=== PATIENT | male | born 1980 | race Caucasian/White ===

== ENCOUNTER 2020-03-06 13:34 | Emergency (ER) | payer MEDICAID, SELFPAY ==
[2020-03-06 13:36] VITALS: BP 140/81; PULSE 90; RESP 16; TEMP 36.9; O2SAT 98; BMI 20.2
--- NOTE | 2020-03-06 14:25 | EKG12_ITS ---
Test Reason : SYNCOPE Blood Pressure : / mmHG Vent. Rate : 075 BPM Atrial Rate : 082 BPM P-R Int : 188 ms QRS Dur : 090 ms QT Int : 370 ms P-R-T Axes : 049 085 048 degrees QTc Int : 413 ms Normal sinus rhythm with sinus arrhythmia Normal ECG Confirmed by VIRAJ HUIZAR, SANDRITA ([id number]), graphic editor TIBURCIO العراقي ([id number]) on 03/10/2020 9:29:11 AM Referred By: RORY Confirmed By:SANDRITA CALI MD
--- NOTE | 2020-03-06 14:25 | RAD_ITS ---
STUDY: X-RAY CHEST REASON FOR EXAM: Male, 39 years old. SYNCOPE, HAS HAD SAME ISSUE IN PAST, NO CHEST COMPAINTS TECHNIQUE: Single AP portable view of the chest. COMPARISON: None. FINDINGS: EKG electrodes are seen. Hyperinflation. The lungs are clear. There is no demonstrated pleural abnormality. Normal size heart. Normal mediastinum and mahesh. Normal visualized pulmonary arteries. Normal visualized aortic arch and descending thoracic aorta. Normal visualized thoracic spine. Normal visualized ribs, clavicles, and shoulders. There is no demonstrated abnormality of the visualized soft tissue structures of the upper abdomen. RAD/Chest 1 View (Portable) IMPRESSION: Hyperinflation. Electronically Signed: Rell Purdy, at 15:31 EDT , Service support ,
--- NOTE | 2020-03-06 14:30 | ED.VIS.GEN ---
History of Present Illness Chief Complaint: Syncope Informant: Patient Onset: Today Narrative: Patient is a 39-year-old male with no past medical history presenting after syncopal episode. Patient was at work this morning around 1130 when he started to feel lightheaded. Patient got up and walked around when he felt little better. He then sat in his bosses chair and put his head down. The next day he noticed spots in a different spot. Patient thinks he might of blacked out because he does not remember his boss moving around the office. Patient states afterwards he started to feel sweaty. He states he has had episodes where he is passed out throughout his life. He thinks he is had about 6 total. Some of that associated with pain in the middle the night or having a bowel movement. States he otherwise felt well this morning but notes that he did not eat breakfast this morning which is normal for him. 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 Patient has not had blood work or seen a primary care doctor in a couple years. He denies any family history of any genetic or cardiac abnormalities. He denies any other complaints at this time. His last episode of syncope was about 3 years ago. Past Medical History - Allergies and Home Meds Allergies/Adverse Reactions: Allergies No Known Allergies Allergy (Verified 03/06/20 13:36) Primary Care Physician: Nick Bedolla MD [STAFF PHYSICIAN] - Past Medical History: None Surgical History: noncontributory Review of Systems General: Reports: Sweats, - - lightheaded. Denies: Chills, Fever Eyes: Denies: Visual changes - bilaterally, Diplopia ENT: Denies: Rhinorrhea, Sore throat Cardiovascular: Denies: Chest pain, Palpitations Respiratory: Denies: Dyspnea, Cough, Dyspnea on exertion Gastrointestinal: Denies: Abdominal pain, Nausea, Vomiting, Diarrhea, Melena, Hematochezia Genitourinary: Denies: Dysuria, Hematuria, Frequency Musculoskeletal: Denies: Back pain, Extremity Pain Skin: Denies: Rash, Wounds Neurological: Denies: Headache, Weakness, Numbness Physical Exam Vital Signs/Narrative: Vital Signs Temp Pulse Resp BP Pulse Ox 03/06/20 13:36 98.4 F 90 16 140/81 H 98 Inital Vital Signs reviewed: Yes General: Well nourished, Well developed, No Acute Distress Head: Normocephalic, Atraumatic Eyes: Perrl, EOMI ENT: Moist mucous membranes, No rhinorrhea Neck: Supple, Nontender Cardiovascular: Regular rate, Regular rhythm, No murmurs Respiratory: No distress, CTA bilaterally, Chest nontender Abdomen: Soft, Nontender, Nondistended, Normal bowel sounds Back: Nontender, Normal Inspection Extremities: Nontender, No edema Skin: Normal color, No rash Neurological: Alert, Oriented x3, Cranial nerves II-XII grossly intact, Normal Strength, Normal Sensation Psychological: Normal affect, Normal Mood Diagnostic/Tx/Re-eval Clinical Impression(s) from Imaging Studies Chest X-Ray 03/06/20 14:25 IMPRESSION: Hyperinflation. Electronically Signed: Rell Rajwinder, at 15:31 EDT , Service support , Laboratory Data 03/06/20 03/06/20 03/06/20 14:40 14:40 16:40 WBC 7.8 RBC 5.22 Hgb 16.5 Hct 48.5 MCV 92.9 MCH 31.6 MCHC 34.0 RDW Std Deviation 40.8 RDW Coeff of Julio 11.9 Plt Count 380 MPV 9.7 Immature Gran % (Auto) 0.400 Neut % (Auto) 77.5 H Lymph % (Auto) 14.2 L [place] % (Auto) 6.5 Eos % (Auto) 0.8 Baso % (Auto) 0.6 Absolute Neuts (auto) 6.1 Absolute Lymphs (auto) 1.11 Nucleated RBC % 0 Sodium 139 Potassium 3.4 L Chloride 105 Carbon Dioxide 29.0 Anion Gap 5 BUN 9 Creatinine 0.87 Estim Creat Clear Calc 100.45 Est GFR (MDRD) Af Amer 125 Est GFR (MDRD) Non-Af 104 BUN/Creatinine Ratio 10.3 Glucose 96 Calcium 9.2 Troponin I < 0.015 TSH 1.77 Urine Color Yellow Urine Clarity Clear Urine pH 8.0 Ur Specific [place] 1.010 Urine Protein Negative Urine Glucose (UA) Normal Urine Ketones Negative Urine Occult Blood Negative Urine Nitrite Negative Urine Bilirubin Negative Urine Urobilinogen Normal Ur Leukocyte Esterase Negative Urine RBC 0 SEEN Urine WBC 0 SEEN Ur Squamous Epith Cells 0 SEEN Amorphous Sediment 1+ Urine Bacteria 0 SEEN Urine Mucus 0 SEEN - Rhythm Strip Rhythm Strip: Sinus Rhythm Rate: 75 Ectopy: None - EKG Initial EKG Interpretation: Sinus Rhythm, - - Normal sinus rhythm at a rate of [address] segments Normal intervals Poor baseline - Medical Decision Making Patient is evaluated for presyncope that occurred at work today. Patient had intermittent episodes over the last 20 years of syncope and presyncope. He is hemodynamically stable in the emergency room. He does have a orthostatics. Patient is given 2 L of IV fluids. His work-up is otherwise negative. He does not have any acute EKG abnormalities. Not complain of any associated chest pain or shortness of breath and I do not think a d-dimer or PE work-up is indicated at this time. Patient is counseled that he is stable for discharge but I do recommend that he follow-up further with a primary care doctor. He is referred to on-call PCP for outpatient follow-up. Patient is counseled that he might benefit from an event monitor but that is up to the discretion of his PCP. I do think there is a component of dehydration as he feels much better after receiving 2 L of IV fluids. Patient is counseled on signs and symptoms requiring return to the emergency room. Patient verbalizes agreement and understand this plan. Patient discharged home in stable and improved condition. ED Disposition - Plan for ED Patient: Disposition: Home or Assisted Living Diagnosis: Dehydration, Orthostatic dizziness Instructions: ED Dehydration Adult, ED Hypotension Orthostatic, ED VAGAL SYNCOPE Referrals: Nick Bedolla MD [STAFF PHYSICIAN] -
[2020-03-06 14:44] VITALS: BP 120/59; BP 73/47; PULSE 59; PULSE 71
[2020-03-06 14:50] LABS: Absolute Lymphocyte Count 1.11 X10^3/uL (0.83-4.51); Absolute Neutrophil Count 6.1 X10^3/uL (2.0-7.7); Basophil# 0.05 X10^3/uL; Basophil% 0.6 % (0-1); Eosinophil# 0.06 X10^3/uL; Eosinophils% 0.8 % (0-5); Hematocrit 48.5 % (40-54); Hemoglobin 16.5 g/dL (13.0-16.5); Lymphocyte # 1.11 X10^3/ul (4.0); Lymphocyte % 14.2 % (19-41); Mean Corpuscular Hgb 31.6 pg (27.0-32.0); Mean Corpuscular Volume 92.9 fL (80-94); Mean Platelet Vol. 9.7 fl (6.2-12.0); Monocyte# 0.51 X10^3/uL; Monocyte% 6.5 % (0-10); NRBC Flagged by Analyzer 0 % (0-5); Neutrophil # 6.08 X10^3/uL (2.7-7.7); Neutrophil % 77.5 % (47-70); Platelet Count 380 K/mm3 (150-450); RBC Distribution Width CV 11.9 % (11.6-14.6); RBC Distribution Width SD 40.8 fl (35.1-43.9); Red Blood Count 5.22 M/mm3 (4.6-6.2); White Blood Count 7.8 K/mm3 (4.4-11.0)
[2020-03-06] MEDS: 0.9% Normal Saline 1,000 ML 1000 ML IV (14:52)
--- NOTE | 2020-03-06 14:55 | NURSING ---
NO OLD EKGS
[2020-03-06 15:23] LABS: Anion Gap 5 (5-15); BUN 9 mg/dL (7-18); BUN/Creat Ratio 10.3 RATIO (10-20); Calcium,Total 9.2 mg/dL (8.5-10.1); Chloride 105 mmol/L (98-107); Creatinine, Serum 0.87 mg/dL (0.70-1.30); EST Glomerular Filtration Rate 104 mL/min (>60); Est Glom Filt Rate - Afr Amer 125 mL/min (>60); Estimated Creatinine Clearance 100.45 ml/min; Glucose 96 mg/dL (74-106); Potassium 3.4 mmol/L (3.5-5.1); Sodium Level 139 mmol/L (136-145); Thyroid Stim Hormone (TSH) 1.77 uIU/mL (0.358-3.74)
[2020-03-06 16:01] VITALS: BP 137/72; PULSE 91; RESP 25; O2SAT 97
[2020-03-06] MEDS: 0.9% Normal Saline 1,000 ML 999 ML IV (16:03)
[2020-03-06 16:45] LABS: Bacteria 0 SEEN /hpf (None Seen); Color, Urine Yellow (Yellow); Glucose, Dipstick Normal (Normal); Ketone-Dipstick Negative (Negative); Leukocyte Esterase-Dipstick Negative /ul (Negative); Mucous, Urine 0 SEEN /hpf (<or=2+); Nitrite-Dipstick Negative (Negative); Occult Blood-Urine Negative /ul (Negative); Protein-Dipstick Negative (Negative); Red Blood Cells-Urine 0 SEEN /hpf (0-5); Squamous Epithelial Cells - UA 0 SEEN /hpf (0-5); Urine Bilirubin Dipstick Negative (Negative); Urine Clarity Clear (Clear); Urine Urobilinogen Normal (Normal); White Blood Cells 0 SEEN /hpf (0-5)
[2020-03-06 17:38] LABS: Amorphous Sediment 1+
[2020-03-06 18:06] VITALS: BP 128/75; PULSE 93; RESP 22; O2SAT 98
== END 2020-03-06 18:07 | disposition home or self-care (01) ==
PROVIDERS: Emergency Provider Emergency Medicine
DX: E86.0 Dehydration (principal); R55 Syncope and collapse
CPT/HCPCS: 71045; 80048; 81001; 84443; 84484; 85025; 93005; 96360; 96361; 99284; J7030; A4216